=== PATIENT | female | born 1960 | race Caucasian/White ===

== ENCOUNTER → 2020-03-30 08:24 | Outpatient (CLI) | payer OTHER, SELFPAY ==
--- NOTE | 2020-03-30 | DI.MG.S_ITS ---
BILATERAL DIGITAL SCREENING MAMMOGRAM 3D/2D WITH CAD: 03/30/2020 CLINICAL: Routine screening. Comparison is made to exams dated: 02/20/2015 mammogram and 07/25/2016 mammogram - outside location. There are scattered fibroglandular elements in both breasts. Current study was also evaluated with a Computer Aided Detection (CAD) system. No significant masses, calcifications, or other findings are seen in either breast. There has been no significant interval change. IMPRESSION: NEGATIVE There is no mammographic evidence of malignancy. A 1 year screening mammogram is recommended. This exam was interpreted at Station ID: [id number]. NOTE: For mammograms, a report in lay terms will be sent to the patient. Approximately 15% of breast malignancies will not be visualized mammographically. In the management of a palpable breast mass, a negative mammogram must not discourage biopsy of a clinically suspicious lesion. Electronically Signed By: Uche rosenthal/elijah:03/30/2020 17:23:36 letter sent: Normal Exam ACR BI-RADS Category 1: Negative 3341F
== END ==
PROVIDERS: PCP Nurse Practitioner Family; Referring Provider Nurse Practitioner Family; Visit Provider Nurse Practitioner Family
DX: Z12.31 Encounter for screening mammogram for malignant neoplasm of breast (principal)
CPT/HCPCS: 77063; 77067

== ENCOUNTER → 2021-06-18 13:21 | Outpatient (CLI) | payer OTHER, SELFPAY ==
--- NOTE | 2021-06-18 | DI.MG.S_ITS ---
BILATERAL DIGITAL SCREENING MAMMOGRAM 3D/2D WITH CAD: 06/18/2021 CLINICAL: Routine screening. Comparison is made to exams dated: 03/30/2020 mammogram - [facility], 07/25/2016 mammogram, and 02/20/2015 mammogram - outside location. There are scattered fibroglandular elements in both breasts. Current study was also evaluated with a Computer Aided Detection (CAD) system. There are stable benign calcifications in both breasts. No significant masses, calcifications, or other findings are seen in either breast. There has been no significant interval change. IMPRESSION: BENIGN There is no mammographic evidence of malignancy. A 1 year screening mammogram is recommended. This exam was interpreted at Station ID: [id number]. NOTE: For mammograms, a report in lay terms will be sent to the patient. Approximately 15% of breast malignancies will not be visualized mammographically. In the management of a palpable breast mass, a negative mammogram must not discourage biopsy of a clinically suspicious lesion. Electronically Signed By: Frank Jimenez acr/penrad:06/18/2021 14:01:08 letter sent: Normal Exam ACR BI-RADS Category 2: Benign Finding(s) 3342F
== END ==
PROVIDERS: PCP Nurse Practitioner Family; Referring Provider Physician Assistant; Visit Provider Physician Assistant
DX: Z12.31 Encounter for screening mammogram for malignant neoplasm of breast (principal)
CPT/HCPCS: 77063; 77067

== ENCOUNTER 2021-07-15 19:34 | Emergency (ER) | payer OTHER, SELFPAY ==
--- NOTE | 2021-07-15 19:42 | PC.NURSE ---
not ready for triage at 1934 or 1940 pt in restroom
[2021-07-15 19:47] VITALS: BP 125/83; PULSE 75; RESP 18; TEMP 36.6; O2SAT 100; BMI 24.7
--- NOTE | 2021-07-15 20:04 | ED_ITS ---
HPI - General Adult General Chief complaint: Abdominal Pain Stated complaint: abd pain, bloating Time Seen by Provider: 07/15/21 20:00 Source: patient Mode of arrival: Family Vehicle History of Present Illness HPI narrative: Patient is a 60-year-old female who is here for evaluation of several days of diarrhea and nausea and vomiting. He also feels like her abdomen is bloated. [place] like she had a fever today. Has had her gallbladder out but no other abdominal surgeries. There is no blood in her stool. She states that just over the past several hours she has had some dysuria but she thinks it is because she is dehydrated has not been able to eat or drink all that much. There has not been any travel. No recent antibiotics. No known sick contacts. is not having any symptoms. Has tried some anti diarrheal medicines at home without much improvement. No skin rashes. Related Data Previous Rx's Medication Instructions Recorded ondansetron 4 mg disintegrating 4 mg PO Q6H PRN #14 tab 07/15/21 tablet Review of Systems Review of Systems ROS Unobtainable: All systems reviewed & are unremarkable except as noted in HPI and below Patient History Surgical History History of cholecystectomy Social History Smoking Status: Never smoker Smoking Status: Never smoker Substance Use Type: does not use Exam Initial Vital Signs Initial Vital Signs: Vital Signs Temperature 97.8 F 07/15/21 19:47 Pulse Rate 75 07/15/21 19:47 Respiratory Rate 18 07/15/21 19:47 Blood Pressure 125/83 07/15/21 19:47 Pulse Oximetry 100 07/15/21 19:47 HENMT Head: normal to inspection and normocephalic Resp Effort & Inspection: normal respiratory effort Auscultation: clear to auscultation bilaterally Cardio Rate: regular rate Rhythm: regular rhythm GI Inspection: normal to inspection and non-distended Palpation: soft, No firm, No guarding and tender (Diffuse tenderness) Skin General: no rashes or lesions noted Neuro General: patient alert, patient awake and moves all extremities Extrem General: normal to inspection and capillary refill normal Psych Appearance: grossly normal and well kempt Course Orders Ordered: ED Orders 07/15/21 19:53 EKG-12 Lead Stat 04/14/22 20:04 Complete Blood Count AUTO DIFF Stat Comprehensive Metabolic Panel Stat Lipase Stat 07/15/21 20:07 CT abdomen pelvis w con Stat 07/15/21 20:09 Ictotest Urine Stat Urinalysis and Microscopic Stat Urine Culture Stat 07/15/21 21:35 GI Panel (Film Array) Stat Discontinued Medications Sodium Chloride (Normal Saline 0.9%) 1,000 mls @ 1,000 mls/hr IV BOLUS ONE Stop: 07/15/21 21:03 Last Infusion: 07/15/21 22:41 Dose: 0 mls/hr Documented by: Admin: 07/15/21 20:39 Dose: 1,000 mls/hr Documented by: DIANNA Ondansetron HCl (Ondansetron 4 Mg Odt Prepack) 1 bottle MISC SEEINSTR ONE Stop: 07/15/21 23:23 Last Admin: 07/15/21 23:26 Dose: 1 bottle Documented by: DIANNA Vital Signs Vital signs: Vital Signs - 8 hr 07/15/21 19:47 07/15/21 23:27 Temperature 97.8 F Pulse Rate 75 77 Respiratory Rate 18 16 Blood Pressure 125/83 118/82 Pulse Oximetry 100 100 Medical Decision Making Lab Data Lab results reviewed: Yes I reviewed the patient's lab results. Result diagrams: 07/15/21 20:04 07/15/21 20:04 Labs: Lab Results 07/15/21 07/15/21 07/15/21 Range/Units 20:04 20:04 20:09 WBC 4.5 (4.5-11.0) X10^3/uL RBC 4.88 (4.0-5.2) X10^6/uL Hgb 14.9 (12.0-16.0) g/dL Hct 43.7 (36-46) % MCV 89.7 (80-100) fL MCH 30.5 (26-34) PG MCHC 34.0 (30-36) % RDW 15.0 H (11.6-14.8) % Plt Count 186 (150-400) X10^3/uL Neut % (Auto) 60.4 (50-75) % Lymph % (Auto) 28.2 (25-40) % [place] % (Auto) 10.2 (3-14) % Eos % (Auto) 0.7 L (2-4) % Baso % (Auto) 0.5 (0-2) % Neut # (Auto) 2700 (6983-3856) /uL Lymph # (Auto) 1300 (3457-7648) /uL [place] # (Auto) 500 (0-900) /uL Eos # (Auto) 0 (0-450) /uL Baso # (Auto) 0 (0-100) /uL Sodium 139 (137-145) mmol/L Potassium 3.8 (3.4-5.1) mmol/L Chloride 108 H (98-107) mmol/L Carbon Dioxide 21 L (22-32) mmol/L BUN 15 (7-17) mg/dL Creatinine 0.79 (0.52-1.04) mg/dL Estimated GFR > 60 (>60) mL/min BUN/Creatinine Ratio 19.0 (6-22) Glucose 116 H (70-100) mg/dL Calcium 10.1 (8.4-10.2) mg/dL Total Bilirubin 0.7 (0.2-1.3) mg/dL AST 240 H (14-36) IU/L ALT 306 H (<35) IU/L Alkaline Phosphatase 226 H (38-126) U/L Total Protein 8.4 H (6.3-8.2) g/dL Albumin 4.7 (3.5-5.0) g/dL Globulin 3.7 (1.7-4.1) g/dL Albumin/Globulin Ratio 1.3 (1.0-2.8) Lipase 101 (23-300) U/L Urine Color Yellow Urine Appearance Sl cloudy Urine pH 6.0 (4.5-8.0) Ur Specific [place] 1.025 (1.000-1.035) Urine Protein 2+ H (Negative) Urine Glucose (UA) Negative (Negative) g/dL Urine Ketones Trace H (NEGATIVE) Urine Occult Blood 2+ H (Negative) Urine Nitrate Negative (Negative) Urine Bilirubin 1+ H (NEGATIVE) Ur Bilirubin Confirm Negative (Negative) Urine Urobilinogen 0.2 (0.2) E.U./dL Ur Leukocyte Esterase 2+ H (NEGATIVE) Urine RBC 5-10/hpf H (0-5/HPF) Urine WBC >100/hpf H (0-5/HPF) Calcium Oxalate Crystal Many H Urine Bacteria Few (2-10) H (None) Ur Culture Indicated? Specimen cultured Stl C. cayetanensis PCR (Not Detect) Stool Rotavirus (PCR) (Not Detect) Stool Adenovirus (PCR) (Not Detect) Stool Astrovirus (PCR) (Not Detect) Stool Cryptosporidium PCR (Not Detect) Stl E.coli Shiga Tox PCR (Not Detect) St Sh/Enteroin Ecoli PCR (Not Detect) Stool E coli O157 PCR (Not Detect) Stl Enterotoxigenic E PCR (Not Detect) Stool EPEC (PCR) (Not Detect) Stl E. histolytica PCR (Not Detect) Stool Giardia Lamblia PCR (Not Detect) Stool Sapovirus (PCR) (Not Detect) Stl P. shigelloides PCR (Not Detect) St Y.enterocolitica PCR (Not Detect) Stool Vibrio (PCR) (Not Detect) Stl Vibrio cholerae PCR (Not Detect) Stl Enteroaggr Ecoli PCR (Not Detect) Stl Norovirus GI/GII PCR (Not Detect) Campylobacter (PCR) (Not Detect) C. difficile Tox (PCR) (Not Detect) Salmonella (PCR) (Not Detect) 07/15/21 Range/Units 21:35 WBC (4.5-11.0) X10^3/uL RBC (4.0-5.2) X10^6/uL Hgb (12.0-16.0) g/dL Hct (36-46) % MCV (80-100) fL MCH (26-34) PG MCHC (30-36) % RDW (11.6-14.8) % Plt Count (150-400) X10^3/uL Neut % (Auto) (50-75) % Lymph % (Auto) (25-40) % [place] % (Auto) (3-14) % Eos % (Auto) (2-4) % Baso % (Auto) (0-2) % Neut # (Auto) (4057-2869) /uL Lymph # (Auto) (3636-6346) /uL [place] # (Auto) (0-900) /uL Eos # (Auto) (0-450) /uL Baso # (Auto) (0-100) /uL Sodium (137-145) mmol/L Potassium (3.4-5.1) mmol/L Chloride (98-107) mmol/L Carbon Dioxide (22-32) mmol/L BUN (7-17) mg/dL Creatinine (0.52-1.04) mg/dL Estimated GFR (>60) mL/min BUN/Creatinine Ratio (6-22) Glucose (70-100) mg/dL Calcium (8.4-10.2) mg/dL Total Bilirubin (0.2-1.3) mg/dL AST (14-36) IU/L ALT (<35) IU/L Alkaline Phosphatase (38-126) U/L Total Protein (6.3-8.2) g/dL Albumin (3.5-5.0) g/dL Globulin (1.7-4.1) g/dL Albumin/Globulin Ratio (1.0-2.8) Lipase (23-300) U/L Urine Color Urine Appearance Urine pH (4.5-8.0) Ur Specific [place] (1.000-1.035) Urine Protein (Negative) Urine Glucose (UA) (Negative) g/dL Urine Ketones (NEGATIVE) Urine Occult Blood (Negative) Urine Nitrate (Negative) Urine Bilirubin (NEGATIVE) Ur Bilirubin Confirm (Negative) Urine Urobilinogen (0.2) E.U./dL Ur Leukocyte Esterase (NEGATIVE) Urine RBC (0-5/HPF) Urine WBC (0-5/HPF) Calcium Oxalate Crystal Urine Bacteria (None) Ur Culture Indicated? Stl C. cayetanensis PCR Not detected (Not Detect) Stool Rotavirus (PCR) Not detected (Not Detect) Stool Adenovirus (PCR) Not detected (Not Detect) Stool Astrovirus (PCR) Detected H (Not Detect) Stool Cryptosporidium PCR Not detected (Not Detect) Stl E.coli Shiga Tox PCR Not detected (Not Detect) St Sh/Enteroin Ecoli PCR Not detected (Not Detect) Stool E coli O157 PCR Not detected (Not Detect) Stl Enterotoxigenic E PCR Not detected (Not Detect) Stool EPEC (PCR) Not detected (Not Detect) Stl E. histolytica PCR Not detected (Not Detect) Stool Giardia Lamblia PCR Not detected (Not Detect) Stool Sapovirus (PCR) Not detected (Not Detect) Stl P. shigelloides PCR Not detected (Not Detect) St Y.enterocolitica PCR Not detected (Not Detect) Stool Vibrio (PCR) Not detected (Not Detect) Stl Vibrio cholerae PCR Not detected (Not Detect) Stl Enteroaggr Ecoli PCR Not detected (Not Detect) Stl Norovirus GI/GII PCR Not detected (Not Detect) Campylobacter (PCR) Not detected (Not Detect) C. difficile Tox (PCR) Not detected (Not Detect) Salmonella (PCR) Not detected (Not Detect) Imaging Data CT scan - abdomen/pelvis: Radiologist's Impression: [address] [address] [address] Scan Report Signed Patient: Kareen Alba MR#: [id number] : 1960 Acct:[id number] Age/Sex: 60 / F Date of Service: 07/15/21 Loc: ED Accession Number: [id number] ?? Procedure: CT abdomen pelvis w con Ordering Provider: Chepe Reis D.O. PROCEDURE:? CT ABDOMEN PELVIS W CON ? INDICATIONS:? Abdominal pain, bloating, vomiting ? TECHNIQUE:? After the administration of intravenous contrast, axial sections acquired from the lung bases to the pubic symphysis.? Coronal and sagittal reformats were performed.? For radiation dose reduction, the following was used:? automated exposure control, adjustment of mA and/or kV according to patient size.? ? COMPARISON:? None. ? FINDINGS:? Image quality:? Excellent.? ? Lung bases:? Unremarkable. Heart:? No significant findings. ? ABDOMEN: Liver:? Unremarkable.? ? Gallbladder:? Status post cholecystectomy. Biliary ducts:? No intrahepatic biliary ductal dilatation.? There is prominence of the main common bile duct which may be related to physiologic dilatation post cholecystectomy.? Pancreatic duct is normal in size. Pancreas:? Unremarkable.? ? Spleen:? Unremarkable.? ? Adrenal Glands:? Unremarkable.? ? Kidneys and Ureters: Kidneys are symmetric in size and enhancement, and there is no obstructive uropathy.? No perinephric inflammatory changes. Ureters are normal in course and caliber.? Multiple bilateral renal hypodensities are incompletely characterized but likely represent renal cysts.? Focal enhancement noted in the central/hilar region of the right kidney likely represents early contrast excretion into the upper renal collecting system.? This is best seen on image 33/series 2. ? Stomach and Bowel:? There are numerous loops of nonspecific fluid-filled small bowel and colon without evidence for abnormal wall thickening or distention.? Stomach, small bowel loops, and colon are otherwise unremarkable.? Peritoneum:? No abnormal intraperitoneal fluid.? No free air.? ? Ventral Wall: ? No hernias.? Abdominal Nodes:? No retroperitoneal or mesenteric adenopathy by size criteria.? Vessels:? Aorta and inferior vena cava are normal in size.? ? PELVIS: Pelvic Organs:? Unremarkable.? ? Bladder:? Unremarkable.? ? Pelvic Nodes: No enlarged lymph nodes.? Miscellaneous: No hernias are seen. ? ? ? Bones:? No acute vertebral body compression fractures. Multilevel spondylitic changes throughout the imaged spine.? No suspicious osseous lesions. ? ? IMPRESSION:? ? 1. Multiple loops of fluid-filled small bowel and colon without dilatation or wall thickening.? Findings are nonspecific and may represent an inflammatory/infectious enteritis or colitis.? No evidence for bowel obstruction. ? 2. Status post cholecystectomy with dilatation of the common bile duct.? This is suspected to be related to physiologic dilatation post cholecystectomy.? No pancreatic ductal dilatation. ? 3. Bilateral renal hypodensities, likely representing cysts.? ? ? Dictated by: Bernardo Mcclellan M.D. on 07/15/2021 at 21:11 ? ? Approved by: Bernardo Mcclellan M.D. on 07/15/2021 at 21:24 ECG Data Attestation: I personally reviewed and interpreted this ECG as follows: Interpretation: Sinus rhythm Ventricular rate of 70 Normal axis Normal QRS Normal QTC No ST T wave changes MDM Narrative Medical decision making narrative: CT scan shows no signs of acute pathology. It is consistent with her presenting symptoms of diarrhea and vomiting. Her stool culture does show viral cause of her symptoms. No indication for antibiotics. We did discuss the use of anti diarrheal medicines try to control her symptoms. No indication for surgical con sultation. Urinalysis does have bacteria and white cells however she does not express overt urinary tract infection like symptoms so we will hold on any antibiotics and wait for the urine culture. I did discuss this with her. This is an attempt to avoid starting her on antibiotics she potentially does not need and potentially causing her diarrhea to worsen. Will send home with nausea medication. She was given return precautions. She expressed understanding and agreement. Discharge Plan Departure Patient Disposition: Home Clinical Impression: Nausea, Diarrhea Instructions: DI for Viral Gastroenteritis -- Adult, DI for Nausea -- Adult Activity Restrictions/Additional Instructions: It is important that you try to stay hydrated. You can drink small amounts of fluid over longer periods of time. Use the nausea medication as needed. There was a urine culture pending at the time here discharge and we will contact you if we need to start any antibiotics. This normally takes several days to result. Contact your primary doctor for a follow-up. Return to the emergency department for any new or worsening symptoms Prescriptions: New ondansetron 4 mg tablet,disintegrating 4 mg PO Q6H PRN (Reason: nausea and vomiting) Qty: 14 0RF Referrals: Dee Doss ARNP [Primary Care Provider] -
--- NOTE | 2021-07-15 20:07 | DI.CT.S_ITS ---
PROCEDURE: CT ABDOMEN PELVIS W CON INDICATIONS: Abdominal pain, bloating, vomiting TECHNIQUE: After the administration of intravenous contrast, axial sections acquired from the lung bases to the pubic symphysis. Coronal and sagittal reformats were performed. For radiation dose reduction, the following was used: automated exposure control, adjustment of mA and/or kV according to patient size. COMPARISON: None. FINDINGS: Image quality: Excellent. Lung bases: Unremarkable. Heart: No significant findings. ABDOMEN: Liver: Unremarkable. Gallbladder: Status post cholecystectomy. Biliary ducts: No intrahepatic biliary ductal dilatation. There is prominence of the main common bile duct which may be related to physiologic dilatation post cholecystectomy. Pancreatic duct is normal in size. Pancreas: Unremarkable. Spleen: Unremarkable. Adrenal Glands: Unremarkable. Kidneys and Ureters: Kidneys are symmetric in size and enhancement, and there is no obstructive uropathy. No perinephric inflammatory changes. Ureters are normal in course and caliber. Multiple bilateral renal hypodensities are incompletely characterized but likely represent renal cysts. Focal enhancement noted in the central/hilar region of the right kidney likely represents early contrast excretion into the upper renal collecting system. This is best seen on image 33/series 2. Stomach and Bowel: There are numerous loops of nonspecific fluid-filled small bowel and colon without evidence for abnormal wall thickening or distention. Stomach, small bowel loops, and colon are otherwise unremarkable. Peritoneum: No abnormal intraperitoneal fluid. No free air. Ventral Wall: No hernias. Abdominal Nodes: No retroperitoneal or mesenteric adenopathy by size criteria. Vessels: Aorta and inferior vena cava are normal in size. PELVIS: Pelvic Organs: Unremarkable. Bladder: Unremarkable. Pelvic Nodes: No enlarged lymph nodes. Miscellaneous: No hernias are seen. Bones: No acute vertebral body compression fractures. Multilevel spondylitic changes throughout the imaged spine. No suspicious osseous lesions. IMPRESSION: 1. Multiple loops of fluid-filled small bowel and colon without dilatation or wall thickening. Findings are nonspecific and may represent an inflammatory/infectious enteritis or colitis. No evidence for bowel obstruction. 2. Status post cholecystectomy with dilatation of the common bile duct. This is suspected to be related to physiologic dilatation post cholecystectomy. No pancreatic ductal dilatation. 3. Bilateral renal hypodensities, likely representing cysts. Dictated by: Bernardo Mcclellan M.D. on 07/15/2021 at 21:11 Approved by: Bernardo Mcclellan M.D. on 07/15/2021 at 21:24
[2021-07-15 20:25] LABS: Appearance Urine UA SL CLOUDY; Bilirubin Urine UA 1+ (NEGATIVE); Color Urine UA YELLOW; Glucose Urine UA NEGATIVE (Negative); Ketones Urine UA TRACE (NEGATIVE); Leukocyte Esterase Urine UA 2+ (NEGATIVE); Nitrite Urine UA NEGATIVE (Negative); Occult Blood Urine UA 2+ (Negative); Protein Urine UA 2+ (Negative); Specific Gravity Urine UA 1.025 (1.000-1.035); Urobilinogen Urine UA 0.2 E.U./dL (0.2)
[2021-07-15 20:25] LABS: Add Manual Diff / Slide Review NO; Basophils Absolute Auto 0 /uL (0-100); Basophils Percent Auto 0.5 % (0-2); Eosinophils Absolute Auto 0 /uL (0-450); Eosinophils Percent Auto 0.7 % (2-4); Hematocrit 43.7 % (36-46); Hemoglobin 14.9 g/dL (12.0-16.0); Lymphocytes Absolute Auto 1300 /uL (1100-4500); Lymphocytes Percent Auto 28.2 % (25-40); Mean Corpuscular Hemoglobin 30.5 PG (26-34); Mean Corpuscular Volume 89.7 fL (80-100); Monocytes Absolute Auto 500 /uL (0-900); Monocytes Percent Auto 10.2 % (3-14); Neutrophils Absolute Auto 2700 /uL (1500-7000); Neutrophils Percent Auto 60.4 % (50-75); Platelet Count 186 X10^3/uL (150-400); Red Blood Cell Count 4.88 X10^6/uL (4.0-5.2); White Blood Cell Count 4.5 X10^3/uL (4.5-11.0)
[2021-07-15 20:34] LABS: Alanine Aminotransferase 306 IU/L (<35); Albumin 4.7 g/dL (3.5-5.0); Albumin Globulin Ratio 1.3 (1.0-2.8); Alkaline Phosphatase 226 U/L (38-126); Aspartate Aminotransferase 240 IU/L (14-36); Bilirubin Total 0.7 mg/dL (0.2-1.3); Blood Urea Nitrogen 15 mg/dL (7-17); Calcium 10.1 mg/dL (8.4-10.2); Carbon Dioxide 21 mmol/L (22-32); Chloride 108 mmol/L (98-107); Estimated Glomerular Filt Rate > 60 mL/min (>60); Globulin 3.7 g/dL (1.7-4.1); Glucose 116 mg/dL (70-100); Lipase 101 U/L (23-300); Potassium 3.8 mmol/L (3.4-5.1); Sodium 139 mmol/L (137-145); Total Protein 8.4 g/dL (6.3-8.2)
[2021-07-15] MEDS: SODIUM CHLORIDE 0.9% 1,000 ML 1000 ML IV (20:39)
[2021-07-15 20:40] LABS: Ictotest Urine Negative (Negative)
[2021-07-15 20:41] LABS: Bacteria Urine Few (2-10); Calcium Oxalate Crystals Urine Many; RBC Urine 5-10/HPF (0-5/HPF); WBC Urine >100/HPF (0-5/HPF)
[2021-07-15 20:42] LABS: Culture Indicated Urine Specimen Cultured
[2021-07-15 20:46] LABS: HEMOLYSIS 68 (0-50)
[2021-07-15 23:14] LABS: Adenovirus F 40/41 Not Detected (Not Detect); Astrovirus Detected (Not Detect); Campylobacter Not Detected (Not Detect); Clostridium difficile toxin AB Not Detected (Not Detect); Cryptosporidium Not Detected (Not Detect); Cyclospora cayetanensis Not Detected (Not Detect); Entamoeba histolytica Not Detected (Not Detect); Enteroaggregative E.coli Not Detected (Not Detect); Enteropathogenic E.coli Not Detected (Not Detect); Enterotoxigenic E.coli It/st Not Detected (Not Detect); Giardia lamblia Not Detected (Not Detect); Norovirus GI/GII Not Detected (Not Detect); Plesiomonsa shigelloides Not Detected (Not Detect); Rotavirus A Not Detected (Not Detect); Salmonella Not Detected (Not Detect); Sapovirus Not Detected (Not Detect); Shiga-like toxin-prod E.coli Not Detected (Not Detect); Shigella/Enteroinvasive E.coli Not Detected (Not Detect); Vibrio Not Detected (Not Detect); Vibrio cholerae Not Detected (Not Detect); Yersinia enterocolitica Not Detected (Not Detect)
[2021-07-15] MEDS: ONDANSETRON 4 MG ODT PREPACK 1 BOTTLE MISC (23:26)
[2021-07-15 23:27] VITALS: BP 118/82; PULSE 77; RESP 16; O2SAT 100
== END 2021-07-15 23:34 | disposition home or self-care (01) ==
PROVIDERS: Emergency Provider Emergency Medicine; PCP Nurse Practitioner Family
DX: R11.2 Nausea with vomiting, unspecified (principal); R19.7 Diarrhea, unspecified; B96.4 Proteus (mirabilis) (morganii) as the cause of diseases classified elsewhere
CPT/HCPCS: 36415; 74177; 80053; 81001; 83690; 85025; 87077; 87086; 87186; 87507; 93005; 93010; 96360; 96361; 99284; Q9967

== ENCOUNTER 2023-01-13 09:28 | Emergency (ER) | payer OTHER, SELFPAY ==
[2023-01-13] VITALS (8 sets, daily range): BP systolic 126–174; BP diastolic 80–94; PULSE 66–75; RESP 17; TEMP 36.6; O2SAT 97–100; BMI 24.3
--- NOTE | 2023-01-13 10:00 | ED_ITS ---
HPI - General Adult General Chief complaint: Abdominal Pain Stated complaint: sent from [facility] side pain T-2 Time Seen by Provider: 01/13/23 09:58 History of Present Illness HPI narrative: 62-year-old female nonsmoker without chronic medical history presents from an outside walk-in clinic for evaluation of multiple days of right lower quadrant pain. It is noted that she was found to have signs of infection in her urine at the clinic but was sent here for evaluation of possible appendicitis versus other. She states that she is had some burning and frequency. Her pain seems to be worse when she moves and improves with rest. She states on occasion she feels like she has some pain radiate to her back. She has nausea and fever. She denies any chest pain or shortness of breath. She is tolerating orals without difficulty. She denies vaginal bleeding or discharge. Related Data Home Medications Medication Instructions Recorded Confirmed lisinopril 10 mg tablet 10 mg PO DAILY 01/13/23 01/13/23 Previous Rx's Medication Instructions Recorded cefpodoxime 200 mg tablet 200 mg PO BID 10 days #20 tabs 01/13/23 cefpodoxime 200 mg tablet 200 mg PO BID 10 days #20 tabs 01/13/23 hydrocodone 5 mg-acetaminophen 325 1 tab PO Q4-6H PRN pain #10 tabs 01/13/23 mg tablet ketorolac 10 mg tablet 10 mg PO Q6H PRN pain #14 tabs 01/13/23 ondansetron 4 mg disintegrating 4 mg PO TID-QID PRN nausea and 01/13/23 tablet vomiting #10 tabs tamsulosin 0.4 mg capsule (Flomax) 0.4 mg PO DAILY #30 caps 01/13/23 Allergies Allergy/AdvReac Type Severity Reaction Status Date / Time No Known Drug Allergies Allergy Verified 01/13/23 10:18 Review of Systems Review of Systems Narrative: GENERAL: See HPI HEENT: Denies sinus pain, ear pain, sore throat, difficulty swallowing, dizziness. RESPIRATORY: Denies dyspnea, cough, wheezing, hemoptysis, sputum. CARDIOVASCULAR: Denies chest pain, palpitations, orthopnea, edema, GASTROINTESTINAL: See HPI : See HPI MUSCULOSKELETAL: denies weakness, joint pain, or bony pain SKIN: Denies rash, skin lesions, or other NEUROLOGIC: Denies weakness, headache, numbness, change in speech, confusion, seizures, incoordination. PSYCHIATRIC: No concerning psychosocial issues. 12 point review of systems is negative except for those stated above Patient History Surgical History History of cholecystectomy Social History Smoking Status: Never smoker Smoking Status: Never smoker Substance Use Type: does not use Exam Narrative Exam Narrative: GENERAL: [62] year old patient appears stated age. Well-developed patient, in mild distress. HEAD: Atraumatic. Normocephalic. EYES: Pupils equal round and reactive. Extraocular motions intact. No scleral icterus. No injection or drainage. ENT: Nose without bleeding, purulent drainage. Throat without erythema, tonsillar hypertrophy or exudate. Airway patent. NECK: Trachea midline. Non tender CARDIOVASCULAR: Regular rate and rhythm without murmurs, gallops, or rubs. RESPIRATORY: Clear to auscultation. Breath sounds equal bilaterally. No wheezes, rales, or rhonchi. GASTROINTESTINAL: Abdomen soft, minimal isolated tenderness in the right lower quadrant without rebound or guarding, negative heel tap, obturator, psoas or Rovsing's, nondistended. Bowel sounds present EXTREMITIES: No edema or joint tenderness. BACK: Nontender without deformity or crepitance. No flank tenderness. NEURO: AOx3. SKIN: No rash or erythema of visible areas Initial Vital Signs Initial Vital Signs: Vital Signs Temperature 97.9 F 01/13/23 10:01 Pulse Rate 72 01/13/23 10:01 Respiratory Rate 17 01/13/23 10:01 Blood Pressure 148/87 H 01/13/23 10:01 Pulse Oximetry 100 01/13/23 10:01 Oxygen Delivery Method Room Air 01/13/23 10:01 Course Orders Ordered: Discontinued Medications Sodium Chloride (Normal Saline 0.9%) 1,000 mls @ 1,000 mls/hr IV BOLUS ONE Stop: 01/13/23 11:11 Last Infusion: 01/13/23 12:21 Dose: Infused Documented By: Admin: 01/13/23 10:24 Dose: 1,000 mls/hr Documented By: OTTONIEL Ceftriaxone Sodium 2,000 mg/ (Sodium Chloride) 100 mls @ 200 mls/hr IV NOW ONE Stop: 01/13/23 10:13 Last Infusion: 01/13/23 11:21 Dose: Infused Documented By: Admin: 01/13/23 10:24 Dose: 200 mls/hr Documented By: OTTONIEL Ketorolac Tromethamine (Ketorolac 30 Mg/Ml Vial) 15 mg IV NOW ONE Stop: 01/13/23 10:13 Last Admin: 01/13/23 10:24 Dose: 15 mg Documented By: OTTONIEL Ondansetron HCl (Ondansetron 4 Mg Odt) 4 mg PO NOW PRN PRN Reason: Nausea And Vomiting Ondansetron HCl (Ondansetron 4 Mg/2 Ml Inj) 4 mg IV NOW PRN PRN Reason: Nausea And Vomiting Ondansetron HCl (Ondansetron 4 Mg/2 Ml Inj) 4 mg IV NOW ONE Stop: 01/13/23 10:13 Last Admin: 01/13/23 11:15 Dose: Not Given Documented By: DANELLE Reevaluation(s) Reevaluation #1: Significant if not total improvement in pain after above-stated therapies Consultations Consultation #1: Discussed with on-call urologist, Dr. Hdz. We discussed patient's history and physical, lack of septic markers, significant improvement symptoms. Patient is offered the option of discharge with antibiotics, strict return precautions and close follow-up or ureteral stenting today with likely return once urine clears. Vital Signs Vital signs: Vital Signs - 8 hr 01/13/23 10:01 01/13/23 10:14 01/13/23 10:15 Temperature 97.9 F Pulse Rate 72 66 Respiratory Rate 17 Blood Pressure 148/87 H 132/86 Pulse Oximetry 100 100 Oxygen Delivery Method Room Air 01/13/23 10:32 01/13/23 10:33 01/13/23 10:33 Temperature Pulse Rate 71 72 Respiratory Rate Blood Pressure 145/87 H Pulse Oximetry 97 100 Oxygen Delivery Method 01/13/23 11:00 01/13/23 11:00 Temperature Pulse Rate 75 Respiratory Rate Blood Pressure 174/89 H Pulse Oximetry 100 Oxygen Delivery Method Medical Decision Making Lab Data 01/13/23 10:15 01/13/23 10:15 Labs: Lab Results 01/13/23 01/13/23 Range/Units 10:05 10:15 WBC 6.6 (4.5-11.0) X10^3/uL RBC 4.54 (4.0-5.2) X10^6/uL Hgb 13.8 (12.0-16.0) g/dL Hct 40.7 (36-46) % MCV 89.6 (80-100) fL MCH 30.3 (26-34) PG MCHC 33.8 (30-36) % RDW 14.7 (11.6-14.8) % Plt Count 208 (150-400) X10^3/uL Neut % (Auto) 73.9 (50-75) % Lymph % (Auto) 17.3 L (25-40) % [place] % (Auto) 6.6 (3-14) % Eos % (Auto) 1.6 L (2-4) % Baso % (Auto) 0.6 (0-2) % Neut # (Auto) 4800 (3828-3956) /uL Lymph # (Auto) 1100 (8579-3699) /uL [place] # (Auto) 400 (0-900) /uL Eos # (Auto) 100 (0-450) /uL Baso # (Auto) 0 (0-100) /uL Sodium 137 (137-145) mmol/L Potassium 4.6 (3.4-5.1) mmol/L Chloride 106 (98-107) mmol/L Carbon Dioxide 28 (22-32) mmol/L BUN 14 (7-17) mg/dL Creatinine 0.71 (0.52-1.04) mg/dL Estimated GFR > 60 (>60) mL/min BUN/Creatinine Ratio 19.7 (6-22) Glucose 107 (80-110) mg/dL Calcium 10.4 H (8.4-10.2) mg/dL Total Bilirubin 0.5 (0.2-1.3) mg/dL AST 38 H (14-36) IU/L ALT 33 (<35) IU/L Alkaline Phosphatase 116 (38-126) U/L Total Protein 7.9 (6.3-8.2) g/dL Albumin 4.6 (3.5-5.0) g/dL Globulin 3.3 (1.7-4.1) g/dL Albumin/Globulin Ratio 1.4 (1.0-2.8) Lipase 159 (23-300) U/L Urine RBC 1-5/hpf (0-5/HPF) Urine WBC 10-30/hpf H (0-5/HPF) Ur Squamous Epith Cells 0-1 /hpf (0-5/HPF) Urine Bacteria Moderate (10-30) H (None) Urine Mucus 1+ H (Negative) Ur Culture Indicated? Specimen cultured Urine Dip Bedside Urine Glucose Negative Bedside Urine Bilirubin - Negative Bedside Urine Ketone - Negative Urine Specific [place] 1.015 Bedside Urine Occult Blood ++ Bedside Urine pH 6.0 Bedside Urine Protein - Negative Bedside Urine Urobilinogen - Negative Bedside Urine Nitrite - Negative Bedside Urine Leukocytes +++ 500 Esterase Point of care testing: Urine Dip Bedside Urine Glucose Negative Bedside Urine Bilirubin - Negative Bedside Urine Ketone - Negative Urine Specific [place] 1.015 Bedside Urine Occult Blood ++ Bedside Urine pH 6.0 Bedside Urine Protein - Negative Bedside Urine Urobilinogen - Negative Bedside Urine Nitrite - Negative Bedside Urine Leukocytes +++ 500 Esterase MDM Narrative Medical decision making narrative: CC: 62-year-old female with evidence of UTI and right lower quadrant pain Complicating co-morbidities: Age Data collected from: Patient Medical records reviewed: Prior notes reviewed in our EMR Differential considered, but not limited to: Pyelonephritis versus kidney stone versus appendicitis versus other Exam documented above, pertinent findings include: Heart rate regular lungs clear. Patient does have right lower quadrant pain, no CVA tenderness, no peritoneal signs Lab Test results independently reviewed as above. Pertinent findings: No leukocytosis or left shift, no signs of anemia, normal electrolytes, creatinine normal and at baseline Independently reviewed EKG as above Imaging studies independently reviewed: CT of the abdomen and pelvis with IV contrast demonstrates a 4 mm stone in the right UVJ with moderate hydroureteronephrosis. No evidence of appendicitis Consultations: Dr. Hdz (Urology) see above Treatments: Zofran, IV fluids, Toradol, Rocephin Re-evaluations: Patient with significant improvement in symptoms after above- stated therapies Discussion: 62-year-old female sent for evaluation of right lower quadrant pain. Multiple diagnoses considered as noted above. History and physical as well as labs and imaging suggest against the likelihood of appendicitis. She does have a 4 mm stone in the setting of a UTI. Extensive discussion with Urology, patient and with shared decision-making about options. She shows no signs of sepsis, has an essential complete resolution of symptoms with above-stated therapies. After discussion of risks and benefits she and elect to go home with antibiotics symptomatic treatment and the expectation of a close follow-up with Urology. They understand return precautions which include but are not limited to worsening pain, fever, shaking chills, vomiting or any other concerning symptoms. Disposition: see below, along with detailed discharge instructions that have been reviewed with patient as well as indications for ED re-evaluation and additional outpatient follow up Discharge Plan Departure Patient Disposition: Home Clinical Impression: Kidney calculi, UTI (urinary tract infection) Instructions: DI for Kidney Infection, DI for Kidney Stones Activity Restrictions/Additional Instructions: *You have been diagnosed with [a urine infection and a 4mm kidney stone ] *What to do: *Please continue to take your regular medications as directed. [ x] New medication prescriptions sent to your pharmacy: [ [facility] [place]] [ ] New medication written as a paper prescription [ ] No new medications given *Please follow up with Dr. Hdz in early next week, call for an appointment. Let them know you were seen in the Emergency Department and that we ask that you be seen in follow up. We will electronically transmit a record of today's note *Return to Emergency Department if you should have any new, worsening or concerning symptoms, such as [fever greater than 101 F, shaking chills, worsening pain, persistent vomiting or other bothersome symptoms] Prescriptions: New cefpodoxime 200 mg tablet 200 mg PO BID 10 Days Qty: 20 0RF Rx Instructions: must administer with a meal/food ketorolac 10 mg tablet 10 mg PO Q6H PRN (Reason: pain) Qty: 14 0RF tamsulosin [Flomax] 0.4 mg capsule 0.4 mg PO DAILY Qty: 30 0RF ondansetron 4 mg tablet,disintegrating 4 mg PO TID-QID PRN (Reason: nausea and vomiting) Qty: 10 0RF hydrocodone-acetaminophen 5-325 mg tablet 1 tab PO Q4-6H PRN (Reason: pain) Qty: 10 0RF cefpodoxime 200 mg tablet 200 mg PO BID 10 Days Qty: 20 0RF Rx Instructions: must administer with a meal/food No Action lisinopril 10 mg tablet 10 mg PO DAILY Referrals: Drew Hdz MD [Physician] - Provider,Claudy ZAMUDIO [Primary Care Provider] - Stand Alone Forms: Patient Portal/API
--- NOTE | 2023-01-13 10:17 | DI.CT.S_ITS ---
PROCEDURE: CT ABDOMEN PELVIS W CON INDICATIONS: severe RLQ pain, fever TECHNIQUE: After the administration of intravenous contrast, axial sections acquired from the lung bases to the pubic symphysis. Coronal and sagittal reformats were performed. For radiation dose reduction, the following was used: automated exposure control, adjustment of mA and/or kV according to patient size. COMPARISON: [facility], CT, CT ABDOMEN PELVIS W CON, 07/15/2021, 20:39. FINDINGS: Lung bases: No pleural effusion ABDOMEN: Liver: Unremarkable. Gallbladder: Resected. Biliary ducts: Similar prominent contour of the extrahepatic bile duct to the level the ampulla possibly related to post cholecystectomy state. No intrahepatic biliary ductal dilation demonstrated. Pancreas: Unremarkable. Spleen: Unremarkable. Adrenal Glands: Unremarkable. Kidneys and Ureters: 4 mm stone present at the right UVJ with moderate upstream hydroureteronephrosis. Delayed enhancement of the right kidney is present. Nonobstructing [place] right renal stones also present. Renal cortical cysts present bilaterally. No left hydroureteronephrosis. Stomach and Bowel: No bowel obstruction. Peritoneum: No abnormal intraperitoneal fluid. No free air. Abdominal Nodes: No retroperitoneal or mesenteric adenopathy by size criteria. Vessels: Aorta and inferior vena cava are normal in size. PELVIS: Pelvic Organs: Unremarkable. Bladder: Unremarkable. Pelvic Nodes: No enlarged lymph nodes. Bones: Multilevel degenerative change of the visualized spine. IMPRESSION: 1. A 4 mm stone is present at the right UVJ with moderate upstream hydroureteronephrosis. 2. Similar extrahepatic biliary ductal dilation. While this may be related to post-cholecystectomy state, correlation with the patient's symptoms and laboratory markers for biliary obstruction may be helpful. Dictated by: Uche Oswald M.D. on 01/13/2023 at 10:34 Approved by: Uche Oswald M.D. on 01/13/2023 at 10:43
[2023-01-13 10:21] LABS: Add Manual Diff / Slide Review NO; Basophils Absolute Auto 0 /uL (0-100); Basophils Percent Auto 0.6 % (0-2); Eosinophils Absolute Auto 100 /uL (0-450); Eosinophils Percent Auto 1.6 % (2-4); Hematocrit 40.7 % (36-46); Hemoglobin 13.8 g/dL (12.0-16.0); Lymphocytes Absolute Auto 1100 /uL (1100-4500); Lymphocytes Percent Auto 17.3 % (25-40); Mean Corpuscular HGB Conc 33.8 % (30-36); Mean Corpuscular Hemoglobin 30.3 PG (26-34); Mean Corpuscular Volume 89.6 fL (80-100); Monocytes Absolute Auto 400 /uL (0-900); Monocytes Percent Auto 6.6 % (3-14); Neutrophils Absolute Auto 4800 /uL (1500-7000); Neutrophils Percent Auto 73.9 % (50-75); Platelet Count 208 X10^3/uL (150-400); Red Blood Cell Count 4.54 X10^6/uL (4.0-5.2); Red Cell Distribution Width 14.7 % (11.6-14.8); White Blood Cell Count 6.6 X10^3/uL (4.5-11.0)
[2023-01-13] MEDS: cefTRIAXone 2,000 MG in SODIUM CHLORIDE 0.9% 100 ML 200 MG IV (10:24)
[2023-01-13] MEDS: KETOROLAC 30 MG/ML VIAL 15 MG IV (10:24)
[2023-01-13] MEDS: SODIUM CHLORIDE 0.9% 1,000 ML 1000 ML IV (10:24)
[2023-01-13 10:38] LABS: Bacteria Urine Moderate (10-30); Culture Indicated Urine Specimen Cultured; Mucus Urine 1+ (Negative); RBC Urine 1-5/HPF (0-5/HPF); Squamous Epithelial Cell Urine 0-1 /HPF (0-5/HPF); WBC Urine 10-30/HPF (0-5/HPF)
[2023-01-13 10:43] LABS: Alanine Aminotransferase 33 IU/L (<35); Albumin 4.6 g/dL (3.5-5.0); Albumin Globulin Ratio 1.4 (1.0-2.8); Alkaline Phosphatase 116 U/L (38-126); Aspartate Aminotransferase 38 IU/L (14-36); BUN Creatinine Ratio 19.7 (6-22); Bilirubin Total 0.5 mg/dL (0.2-1.3); Blood Urea Nitrogen 14 mg/dL (7-17); Calcium 10.4 mg/dL (8.4-10.2); Carbon Dioxide 28 mmol/L (22-32); Chloride 106 mmol/L (98-107); Estimated Glomerular Filt Rate > 60 mL/min (>60); Globulin 3.3 g/dL (1.7-4.1); Glucose 107 mg/dL (80-110); HEMOLYSIS 19 (0-50); Lipase 159 U/L (23-300); Potassium 4.6 mmol/L (3.4-5.1); Sodium 137 mmol/L (137-145); Total Protein 7.9 g/dL (6.3-8.2)
== END 2023-01-13 12:30 | disposition home or self-care (01) ==
PROVIDERS: Emergency Provider Emergency Medicine
DX: N20.0 Calculus of kidney (principal); N39.0 Urinary tract infection, site not specified
CPT/HCPCS: 36415; 74177; 80053; 81003; 81015; 83690; 85025; 87077; 87086; 87186; 93005; 96365; 96375; 99284; J0696; J1885; Q9967

== ENCOUNTER 2024-08-04 13:24 | Emergency (ER) | payer OTHER, SELFPAY ==
[2024-08-04 13:27] VITALS: BP 153/94; PULSE 75; RESP 17; TEMP 36.8; O2SAT 100; BMI 24.7
--- NOTE | 2024-08-04 14:26 | PC.NURSE ---
pt denies dizziness, headache, chest pain, confusion/change in mental status, weakness, cough, weakness and any changes is vision pt reports hit head two times last month but is concerned for nausea and vomiting she has experienced [facility]-- has concerns nausea and vomiting could be related to head injury
[2024-08-04 14:34] VITALS: BP 139/82; PULSE 70; RESP 16; O2SAT 99
[2024-08-04 15:00] VITALS: BP 119/83; PULSE 68; RESP 16; O2SAT 99
--- NOTE | 2024-08-04 15:07 | ED_ITS ---
HPI - Headache General Chief Complaint: Dizziness Stated Complaint: Hit Head x2, Headaches, Nausea, Dizzyness Time Seen by Provider: 08/04/24 14:53 Mode of arrival: Ambulatory History of Present Illness HPI Narrative: Patient is a 63-year-old female history of hypertension presenting today with headache dizziness. Here with report that July 09 car trunk door fell on her head. No loss of consciousness but she did have mild headache and then a couple weeks later hit her head getting out of a van. She has had headaches off and on since the 2 injuries. She has had some dizziness. No nausea vomiting. No chest pain or shortness of breath. However they were in the [facility] and just got back recently and she is still having symptoms and they wanted her checked out. She really has no other complaints no cough fever shortness of breath or other symptoms. Related Data Home Medications Medication Instructions Recorded Confirmed lisinopril 10 mg tablet 10 mg PO DAILY 01/13/23 01/13/23 Previous Rx's Medication Instructions Recorded hydrocodone 5 mg-acetaminophen 325 1 tab PO Q4-6H PRN pain #10 tabs 01/13/23 mg tablet ketorolac 10 mg tablet 10 mg PO Q6H PRN pain #14 tabs 01/13/23 ondansetron 4 mg disintegrating 4 mg PO TID-QID PRN nausea and 01/13/23 tablet vomiting #10 tabs tamsulosin 0.4 mg capsule (Flomax) 0.4 mg PO DAILY #30 caps 01/13/23 Allergies Allergy/AdvReac Type Severity Reaction Status Date / Time No Known Drug Allergies Allergy Verified 08/04/24 13:27 Patient History Surgical History History of cholecystectomy Social History Smoking Status: Never smoker Smoking Status: Never smoker Alcohol type: wine Exam Initial Vital Signs Initial Vital Signs: Vital Signs Temperature 98.2 F 08/04/24 13:27 Pulse Rate 75 08/04/24 13:27 Respiratory Rate 17 08/04/24 13:27 Blood Pressure 153/94 H 08/04/24 13:27 Pulse Oximetry 100 08/04/24 13:27 Oxygen Delivery Method Room Air 08/04/24 13:27 GENERAL: Alert pleasant well-appearing 63-year-old female and in no acute distress. HEENT: Head atraumatic,EOMI, pupils reactive, face symmetric, moist mucous membranes CARDIOVASCULAR: Regular rate and rhythm without murmurs, rubs or gallops. RESPIRATORY: Breath sounds equal bilaterally, no wheezes rales or rhonchi. ABDOMEN: Soft, nontender. Normoactive bowel sounds all 4 quadrants. No guarding or rebound. EXTREMITIES: Normal range of motion, no clubbing or edema. Neurovascularly intact NEUROLOGICAL: Alert and oriented x4.Normal gait and speech. Cranial nerves II through XII grossly intact. SKIN: Warm, dry, no laceration, no petechiae, no rashes or lesions. Scores GCS [place] coma scale eye opening: Spontaneous [place] coma scale verbal response: Orientated [place] coma scale motor response: Obey commands [place] coma scale total score: 15 Course Orders Ordered: ED Orders 08/04/24 15:07 CT head/brain wo con Stat EKG-12 Lead Stat 08/04/24 15:15 Complete Blood Count AUTO DIFF Stat Comprehensive Metabolic Panel Stat Lipase Stat Troponin & CK Cardiac Panel Stat Discontinued Medications Sodium Chloride (Normal Saline 0.9%) 1,000 mls @ 1,000 mls/hr IV BOLUS ONE Stop: 08/04/24 16:08 Last Infusion: 08/04/24 16:34 Dose: Infused Documented By: Admin: 08/04/24 15:18 Dose: 1,000 mls/hr Documented By: Vital Signs Vital signs: Vital Signs - 8 hr 08/04/24 13:27 08/04/24 14:34 08/04/24 15:00 Temperature 98.2 F Pulse Rate 75 70 Respiratory Rate 17 16 Blood Pressure 153/94 H 139/82 119/83 Pulse Oximetry 100 99 Oxygen Delivery Method Room Air 08/04/24 15:00 08/04/24 15:30 08/04/24 15:32 Temperature Pulse Rate 68 68 64 Respiratory Rate 16 22 Blood Pressure 133/86 Pulse Oximetry 99 99 99 Oxygen Delivery Method 08/04/24 16:00 Temperature Pulse Rate 70 Respiratory Rate 20 Blood Pressure 137/85 Pulse Oximetry 99 Oxygen Delivery Method MDM - Headache Lab Data 08/04/24 15:15 08/04/24 15:15 Labs: Lab Results 08/04/24 Range/Units 15:15 WBC 5.6 (4.5-11.0) X10^3/uL RBC 4.33 (4.0-5.2) X10^6/uL Hgb 12.9 (12.0-16.0) g/dL Hct 37.9 (36-46) % MCV 87.5 (80-100) fL MCH 29.8 (26-34) PG MCHC 34.1 (30-36) % RDW 15.5 H (11.6-14.8) % Plt Count 208 (150-400) X10^3/uL Neut % (Auto) 60.7 (50-75) % Lymph % (Auto) 31.0 (25-40) % [place] % (Auto) 6.1 (3-14) % Eos % (Auto) 1.6 L (2-4) % Baso % (Auto) 0.6 (0-2) % Neut # (Auto) 3400 (9637-2071) /uL Lymph # (Auto) 1700 (2618-3194) /uL [place] # (Auto) 300 (0-900) /uL Eos # (Auto) 100 (0-450) /uL Baso # (Auto) 0 (0-100) /uL Sodium 139 (137-145) mmol/L Potassium 3.8 (3.4-5.1) mmol/L Chloride 107 (98-107) mmol/L Carbon Dioxide 26 (22-32) mmol/L BUN 10 (7-17) mg/dL Creatinine 0.67 (0.52-1.04) mg/dL Estimated GFR > 60 (>60) mL/min BUN/Creatinine Ratio 14.9 (6-22) Glucose 114 H (70-99) mg/dL Calcium 10.1 (8.4-10.2) mg/dL Total Bilirubin 0.5 (0.2-1.3) mg/dL AST 38 H (14-36) IU/L ALT 26 (<35) IU/L Alkaline Phosphatase 94 (38-126) U/L Total Creatine Kinase 71 (30-135) U/L Troponin I < 0.012 (0.01-0.034) ng/mL Total Protein 7.3 (6.3-8.2) g/dL Albumin 4.2 (3.5-5.0) g/dL Globulin 3.1 (1.7-4.1) g/dL Albumin/Globulin Ratio 1.4 (1.0-2.8) Lipase 105 (23-300) U/L Imaging Data CT scan - head: Radiologist's Impression: PROCEDURE: CT HEAD/BRAIN WO CON INDICATIONS: headache dizziness for weeks TECHNIQUE: Noncontrast 4.5 mm thick angled axial sections acquired from the foramen magnum to the vertex, with coronal and sagittal reformats. For radiation dose reduction, the following was used: automated exposure control, adjustment of mA and/or kV according to patient size. COMPARISON: None. FINDINGS: Image quality: Diagnostic. CSF spaces: Basal cisterns are patent. No extra-axial fluid collections. Ventricles are normal in size and shape. Brain: No midline shift. No intracranial mass effect or hemorrhage. [place]- white matter interface is normal. Skull and face: Calvarium and visualized facial bones are intact, without suspicious lesions. Sinuses: Visualized sinuses and mastoids are clear. IMPRESSION: No acute intracranial pathology. Dictated by: Chapito Srinivasan M.D. on 08/04/2024 at 15:08 ECG Data Attestation: I personally reviewed and interpreted this ECG as follows: Prior ECG tracings: available for review Interpretation: Normal sinus rhythm rate 61 MT interval 206 QRS [address] changes or T- wave inversions MDM Narrative Medical decision making narrative: Patient is 63-year-old female presenting today with a variety of symptoms. She had some low mechanism injuries to her head 1 month ago. But has had ongoing headaches and some light dizziness ever since. She was GCS of 15 neurovascularly intact. Blood work has been reviewed overall reassuring No leukocytosis no anemia No JOSS or electrolyte abnormality troponin negative EKGs reviewed no acute ischemia Head CT reviewed no intracranial process At this time no significant cause of her dizziness. She did receive a L of IV fluids. Overall feeling a little bit better. She was neurovascularly in tact. Reports that Tylenol does make her headache feel better I encouraged this and supportive care. No need for any further workup. Discharge Plan Departure Patient Disposition: Home Clinical Impression: Headache Instructions: DI for Headache Activity Restrictions/Additional Instructions: *You have been diagnosed with headache *What to do: At this time blood work and CT are overall reassuring. Increase fluid and diet as tolerated *Continue to take medications as directed *Follow up with your primary care provider in 2-3 days or call [phone] *Return to ER if you should have increasing dizziness chest pain weakness falling [or] any new, worsening or concerning symptoms Prescriptions: No Action lisinopril 10 mg tablet 10 mg PO DAILY ketorolac 10 mg tablet 10 mg PO Q6H PRN (Reason: pain) Qty: 14 0RF tamsulosin [Flomax] 0.4 mg capsule 0.4 mg PO DAILY Qty: 30 0RF ondansetron 4 mg tablet,disintegrating 4 mg PO TID-QID PRN (Reason: nausea and vomiting) Qty: 10 0RF hydrocodone-acetaminophen 5-325 mg tablet 1 tab PO Q4-6H PRN (Reason: pain) Qty: 10 0RF Referrals: ProviderClaudy [Primary Care Provider] - Stand Alone Forms: Patient Portal/API/Survey
[2024-08-04] MEDS: SODIUM CHLORIDE 0.9% 1,000 ML 1000 ML IV (15:18)
[2024-08-04 15:24] LABS: Add Manual Diff / Slide Review NO; Basophils Absolute Auto 0 /uL (0-100); Basophils Percent Auto 0.6 % (0-2); Eosinophils Absolute Auto 100 /uL (0-450); Eosinophils Percent Auto 1.6 % (2-4); Hematocrit 37.9 % (36-46); Hemoglobin 12.9 g/dL (12.0-16.0); Lymphocytes Absolute Auto 1700 /uL (1100-4500); Mean Corpuscular HGB Conc 34.1 % (30-36); Mean Corpuscular Hemoglobin 29.8 PG (26-34); Mean Corpuscular Volume 87.5 fL (80-100); Monocytes Absolute Auto 300 /uL (0-900); Monocytes Percent Auto 6.1 % (3-14); Neutrophils Absolute Auto 3400 /uL (1500-7000); Neutrophils Percent Auto 60.7 % (50-75); Platelet Count 208 X10^3/uL (150-400); Red Blood Cell Count 4.33 X10^6/uL (4.0-5.2); Red Cell Distribution Width 15.5 % (11.6-14.8); White Blood Cell Count 5.6 X10^3/uL (4.5-11.0)
[2024-08-04 15:30] VITALS: PULSE 68; O2SAT 99
[2024-08-04 15:32] VITALS: BP 133/86; PULSE 64; RESP 22; O2SAT 99
[2024-08-04 15:35] LABS: Alanine Aminotransferase 26 IU/L (<35); Albumin 4.2 g/dL (3.5-5.0); Albumin Globulin Ratio 1.4 (1.0-2.8); Alkaline Phosphatase 94 U/L (38-126); Aspartate Aminotransferase 38 IU/L (14-36); BUN Creatinine Ratio 14.9 (6-22); Bilirubin Total 0.5 mg/dL (0.2-1.3); Blood Urea Nitrogen 10 mg/dL (7-17); Calcium 10.1 mg/dL (8.4-10.2); Carbon Dioxide 26 mmol/L (22-32); Chloride 107 mmol/L (98-107); Creatine Kinase 71 U/L (30-135); Estimated Glomerular Filt Rate > 60 mL/min (>60); Globulin 3.1 g/dL (1.7-4.1); Glucose 114 mg/dL (70-99); HEMOLYSIS < 15 (0-50); Lipase 105 U/L (23-300); Potassium 3.8 mmol/L (3.4-5.1); Sodium 139 mmol/L (137-145); Total Protein 7.3 g/dL (6.3-8.2)
--- NOTE | 2024-08-04 15:36 | EKG_ITS ---
[place] [address] [place] [id number] Test Date: 2024-08-04 Pat Name: Kareen Alba Department: [facility] Room: Gender: Female Medical Billing Assistant: : 1960 Requested By: Order Number: [id number] Reading MD: Harshal Quiles MD Measurements Intervals [place] Rate: 61 P: 67 ID: [id number] QRS: 9 QRSD: 100 T: 55 QT: 392 QTc: 394 Interpretive Statements Normal sinus rhythm Low voltage QRS Incomplete right bundle branch block Electronically Signed On 08-05-2024 7:33:58 PDT by Harshal Quiles MD
[2024-08-04 15:47] LABS: Troponin I < 0.012 ng/mL (0.01-0.034)
[2024-08-04 16:00] VITALS: BP 137/85; PULSE 70; RESP 20; O2SAT 99
== END 2024-08-04 16:50 | disposition home or self-care (01) ==
PROVIDERS: Emergency Provider Emergency Medicine
DX: R51.9 Headache, unspecified (principal); R42 Dizziness and giddiness; I10 Essential (primary) hypertension; W22.09XA Striking against other stationary object, initial encounter
CPT/HCPCS: 36415; 70450; 80053; 82550; 83690; 84484; 85025; 93005; 93010; 96360; 99284

== ENCOUNTER → 2024-12-19 17:16 | Outpatient (CLI) | payer OTHER, SELFPAY | PROVIDERS: Referring Provider Nurse Practitioner; Visit Provider Nurse Practitioner | DX: N20.0 Calculus of kidney (principal) | CPT/HCPCS: 87077; 87086; 87186 ==